=== PATIENT | female | born 1980 | race Caucasian/White ===

== ENCOUNTER 2017-11-07 07:00 | Day surgery (SDC) | payer OTHER ==
[2017-11-02 15:27] VITALS: BMI 65.9
[~2017-11-07 07:00] MED LIST: LACTATED RINGERS 1,000 ML IV SCH; LIDOCAINE 1% 20 ML VIAL (10MG/ML) FOR IV START INTRADERMA PRN
[2017-11-07 07:49] VITALS: TEMP 98.5
[2017-11-07 08:04] LABS: Glucose,Whole Blood 121 mg/dL (75-99)
[2017-11-07] MEDS ORDERED: KETAMINE 10 MG/ML 20 ML VIAL ONE (08:04)
[2017-11-07] MEDS ORDERED: LIDOCAINE 1% INJ 10MG/ML (20 ML MDV) ONE (08:04)
[2017-11-07] MEDS ORDERED: MIDAZOLAM 2 MG/2 ML VIAL ONE (08:04)
[2017-11-07] MEDS ORDERED: ONDANSETRON 4 MG/2 ML VIAL ONE (08:04)
[2017-11-07] MEDS ORDERED: PROPOFOL 10 MG/ML 20 ML VIAL IV ONE (08:04)
--- NOTE | 2017-11-07 08:06 | P.GSHP ---
History of Present Illness H&P Date: 11/07/17 CHIEF COMPLAINT: GERD HISTORY OF PRESENT ILLNESS: The patient is a 36-year-old female who presents reports gastroesophageal reflux disease. Upper endoscopy was offered for further evaluation and management. PAST MEDICAL HISTORY: Please see list. PAST SURGICAL HISTORY: Please see list. MEDICATIONS: Please see list. ALLERGIES: Please see list. SOCIAL HISTORY: No illicit drug use FAMILY HISTORY: No reports of Crohn disease or ulcerative colitis. REVIEW OF ORGAN SYSTEMS: CONSTITUTIONAL: No reports of fevers or chills. GI: Denies any blood in stools or constipation. PHYSICAL EXAM: VITAL SIGNS: Stable GENERAL: Well-developed and pleasant in no acute distress. HEENT: No scleral icterus. Extraocular movements grossly intact. Moist buccal mucosa. NECK: Supple without lymphadenopathy. CHEST: Unlabored respirations. Equal bilateral excursions. CARDIOVASCULAR: Regular rate and rhythm. Distal 2+ pulses. ABDOMEN: Soft, nondistended. MUSCULOSKELETAL: No clubbing, cyanosis, or edema. ASSESSMENT: 1. Gastroesophageal reflux disease PLAN: 1. Recommend proceeding with an upper endoscopy Past Medical History Past Medical History: Asthma, COPD, Diabetes Mellitus, GERD/Reflux, Osteoarthritis (OA), Sleep Apnea/CPAP/BIPAP Additional Past Medical History / Comment(s): HAS NOT RECEIVED C-PAP YET., NEUROPATHY FEET, ANEMIA, LOOSE STOOLS & DIARRHEA., VARICOSE VEIN., PAIN RIGHT ABD. History of Any Multi-Drug Resistant Organisms: MRSA Date of last positivie culture/infection: 2013? MDRO Source:: LEFT AXILL, BUTTOCKS & BACK Past Surgical History: Section, Orthopedic Surgery Additional Past Surgical History / Comment(s): LEFT KNEE RELEASE, D & C, WART REMOVED AXILLA Past Anesthesia/Blood Transfusion Reactions: Previous Problems w/ Anesthesia, Family History of Problems w/ Anesthesia, Motion Sickness, Postoperative Nausea & Vomiting (PONV) Additional Past Anesthesia/Blood Transfusion Reaction / Comment(s): MOTHER HAS PONV Past Psychological History: Anxiety, Depression Smoking Status: Current every day smoker Past Alcohol Use History: None Reported Additional Past Alcohol Use History / Comment(s): SMOKES 4 CIGARETTES /DAY. HX OF 1/2-1 PPD., SMOKING SINCE 23 YEARS OLD Past Drug Use History: None Reported - Past Family History Mother Family Medical History: No Reported History Medications and Allergies Home Medications Medication Instructions Recorded Confirmed Type Albuterol Inhaler [Ventolin Hfa 1 - 2 puff INHALATION RT-Q6H PRN 11/02/17 History Inhaler] Gabapentin [Neurontin] 400 mg PO BID 11/02/17 11/02/17 History Naproxen Sodium [Aleve] 440 mg PO DAILY PRN 11/02/17 11/07/17 History Omeprazole [PriLOSEC] 20 mg PO AC-BRKFST 11/02/17 11/02/17 History Pulmicort/Albuterol Nebulizer 1 dose INHALATION DIRECTED PRN 11/02/17 History buPROPion XL [Wellbutrin Xl] 300 mg PO DAILY 11/02/17 11/02/17 History glipiZIDE [Glucotrol] 1.25 mg PO AC-BRKFST 11/02/17 11/02/17 History Allergies Allergy/AdvReac Type Severity Reaction Status Date / Time erythromycin base Allergy Unknown Nausea & Verified 11/02/17 15:17 Vomiting latex Allergy Unknown Itching Verified 11/02/17 15:17 metformin AdvReac Severe Severe Verified 11/02/17 15:17 Headache adhesive tape AdvReac Unknown Itching Verified 11/02/17 15:17 Surgical - Exam Vital Signs Temp Pulse Resp BP Pulse Ox 98.5 F 87 14 107/73 97 11/07/17 07:48 11/07/17 07:48 11/07/17 07:48 11/07/17 07:48 11/07/17 07:48 Results - Labs Abnormal Lab Results - Last 24 Hours (Table) 11/07/17 Range/Units 08:00 POC Glucose (mg/dL) 121 H (75-99) mg/dL
--- NOTE | 2017-11-07 08:27 | P.PCN ---
Date of Procedure: 11/07/17 Description of Procedure: PREOPERATIVE DIAGNOSIS: Gastroesophageal reflux disease. Morbid obesity. POSTOPERATIVE DIAGNOSIS: Morbid obesity. Gastritis. Gastroesophageal reflux disease. Diaphragmatic hiatal hernia without obstruction. OPERATION: Esophagogastroduodenoscopy with biopsies along antrum. SURGEON: Jessika Gibson MD ANESTHESIA: MAC. INDICATIONS: The patient is a 36-year-old female who presents with a history of reflux disease. Benefits and risks of the procedure were described. Informed consent was obtained. DESCRIPTION: The patient was brought into the endoscopy suite and laid in the left lateral decubitus position. An Olympus gastroscope was passed along the posterior oropharynx down to the distal esophagus where the squamocolumnar junction was encountered at 39 cm from the incisors. The stomach was entered and no bile reflux was found. Additional findings are listed below. Biopsies with cold forceps were obtained of the antrum. The first through third portion of the duodenum was examined and unremarkable. Retroflexion of the scope confirmed Hill grade 3 lower esophageal valve. The squamocolumnar junction demostrated acute LA grade B erosive esophagitis. The stomach was desufflated. The patient tolerated the procedure well. FINDINGS: Squamocolumnar junction 37 cm from the incisors. Diaphragmatic hiatus at 39 cm. Hiatal hernia 2 cm. Hill grade 3 lower esophageal valve. LA grade B erosive esophagitis. No active duodenitis. Chronic gastritis. RECOMMENDATIONS: Further recommendations pending results of pathology report. Upper endoscopy as needed. Plan - Discharge Summary New Discharge Prescriptions: No Action glipiZIDE [Glucotrol] 1.25 mg PO AC-BRKFST buPROPion XL [Wellbutrin Xl] 300 mg PO DAILY Omeprazole [PriLOSEC] 20 mg PO AC-BRKFST Naproxen Sodium [Aleve] 440 mg PO DAILY PRN PRN Reason: Pain Gabapentin [Neurontin] 400 mg PO BID Albuterol Inhaler [Ventolin Hfa Inhaler] 1 - 2 puff INHALATION RT-Q6H PRN PRN Reason: Shortness Of Breath Pulmicort/Albuterol Nebulizer 1 dose INHALATION DIRECTED PRN PRN Reason: Shortness Of Breath Discharge Medication List Albuterol Inhaler [Ventolin Hfa Inhaler] 1 - 2 puff INHALATION RT-Q6H PRN [History] Gabapentin [Neurontin] 400 mg PO BID 11/02/17 [History] Naproxen Sodium [Aleve] 440 mg PO DAILY PRN 11/02/17 [History] Omeprazole [PriLOSEC] 20 mg PO -[facility] 11/02/17 [History] Pulmicort/Albuterol Nebulizer 1 dose INHALATION DIRECTED PRN 11/02/17 [ History] buPROPion XL [Wellbutrin Xl] 300 mg PO DAILY 11/02/17 [History] glipiZIDE [Glucotrol] 1.25 mg PO -[facility] 11/02/17 [History]
[2017-11-07 08:35] VITALS: RESP 16
[2017-11-07] MEDS ORDERED: ONDANSETRON 4 MG/2 ML VIAL IVP ONE (08:42)
[2017-11-07 08:48] VITALS: BP 118/58; PULSE 85
== END 2017-11-07 09:14 | disposition home or self-care (01) ==
LOC: ORWHC2ENDO 07:00
PROVIDERS: ATTEND Surgery Plastic and Reconstructive Surgery
DX: K31.9 Disease of stomach and duodenum, unspecified (principal); K29.70 Gastritis, unspecified, without bleeding; K22.10 Ulcer of esophagus without bleeding; K44.9 Diaphragmatic hernia without obstruction or gangrene; K21.9 Gastro-esophageal reflux disease without esophagitis; E66.01 Morbid (severe) obesity due to excess calories; Z68.44 Body mass index [BMI] 60.0-69.9, adult; E13.42 Other specified diabetes mellitus with diabetic polyneuropathy; Z79.84 Long term (current) use of oral hypoglycemic drugs; M19.90 Unspecified osteoarthritis, unspecified site; G47.30 Sleep apnea, unspecified; J44.9 Chronic obstructive pulmonary disease, unspecified; F41.9 Anxiety disorder, unspecified; F32.9 Major depressive disorder, single episode, unspecified; F17.210 Nicotine dependence, cigarettes, uncomplicated; Z79.899 Other long term (current) drug therapy; Z88.1 Allergy status to other antibiotic agents; Z91.040 Latex allergy status; Z88.8 Allergy status to other drugs, medicaments and biological substances; Z91.09 Other allergy status, other than to drugs and biological substances
CPT/HCPCS: 81025; 88305; 43239; J2250; J2405; J2001; J2704

== ENCOUNTER → 2017-12-22 | Outpatient (CLI) | payer OTHER ==
[2017-12-22 10:06] LABS: HCT 38.3 % (34.0-46.0); MCH 25.2 pg (25.0-35.0); MCHC 31.5 g/dL (31.0-37.0); Platelet Count 388 k/uL (150-450); RBC 4.78 m/uL (3.80-5.40); WBC 11.8 k/uL (3.8-10.6)
== END | disposition home or self-care (01) ==
LOC: LABPAT 09:27
PROVIDERS: ATTEND Anesthesiology
DX: Z01.812 Encounter for preprocedural laboratory examination (principal)
CPT/HCPCS: 36415; 85027; 93005

== ENCOUNTER 2017-12-28 06:50 | Day surgery (SDC) | payer OTHER ==
[2017-12-21 12:54] VITALS: BMI 65.8
--- NOTE | 2017-12-27 17:59 | P.GSHP ---
History of Present Illness H&P Date: 12/28/17 CHIEF COMPLAINT: Cholecystitis HISTORY OF PRESENT ILLNESS: The patient is a 37-year-old female who presents with history of epigastric including right upper quadrant abdominal pain. She underwent diagnostic studies for her gallbladder. Separately her clinical picture was consistent with cholecystitis. Now she presents for surgical intervention. PAST MEDICAL HISTORY: Please see list PAST SURGICAL HISTORY: Please see list MEDICATIONS: Please see list ALLERGIES: Denies. SOCIAL HISTORY: No illicit drug use or recent tobacco use FAMILY HISTORY: Pertinent for gallbladder disease REVIEW OF ORGAN SYSTEMS: CONSTITUTIONAL: No reports of fevers or chills. HEENT: Denies any troubles with the vision or hearing. ENDOCRINE: No reports of hypothyroidism. Has diabetes. RESPIRATORY: No recent pneumonias. CARDIOVASCULAR: Denies chest pain or palpitations GI: No blood in stools or constipation. MUSCULOSKELETAL: Has occasional joint pain including back pain. NEURO: No seizure disorders or headaches. No recent stroke. PSYCH: No depression or suicidal ideation. HEMATOLOGIC: No personal or family history of DVTs or pulmonary emboli. PHYSICAL EXAM: VITAL SIGNS: Afebrile vital signs stable GENERAL: Well-developed pleasant in no acute distress. HEENT: No scleral icterus. Extraocular movements grossly intact. Moist buccal mucosa. NECK: Supple without lymphadenopathy. CHEST: Unlabored respirations. Equal bilateral excursions. CARDIOVASCULAR: Regular rate regular rhythm rhythm. Distal 2+ pulses. ABDOMEN: Soft, nondistended. Tender along the epigastrium and right upper quadrant. MUSCULOSKELETAL: No clubbing, cyanosis, or edema. NEURO: Cranial nerves II to XII within normal limits. No focal or lateralizing signs. PSYCH: Alert and oriented to person, place and time. ASSESSMENT: 1. Epigastric and right upper quadrant abdominal pain 2. Chronic cholecystitis 3. Symptomatic gallstones. PLAN: 1. Will need a robotic cholecystectomy possible open. Benefits and risks were described. 2. Heparin for DVT prophylaxis 5000 units. 3. Antibiotic prophylaxis. Past Medical History Past Medical History: Asthma, COPD, Diabetes Mellitus, GERD/Reflux, Osteoarthritis (OA), Sleep Apnea/CPAP/BIPAP Additional Past Medical History / Comment(s): HAS NOT RECEIVED C-PAP YET., NEUROPATHY FEET, SCOLIOSIS, ANEMIA, LOOSE STOOLS & DIARRHEA., VARICOSE VEIN., PAIN RIGHT ABD., HIATAL HERNIA. History of Any Multi-Drug Resistant Organisms: MRSA Date of last positivie culture/infection: 2013? MDRO Source:: LEFT AXILL, BUTTOCKS & BACK Past Surgical History: Section, Orthopedic Surgery Additional Past Surgical History / Comment(s): LEFT KNEE RELEASE, D & C, WART REMOVED AXILLA, EGD Past Anesthesia/Blood Transfusion Reactions: Previous Problems w/ Anesthesia, Family History of Problems w/ Anesthesia, Motion Sickness, Postoperative Nausea & Vomiting (PONV) Additional Past Anesthesia/Blood Transfusion Reaction / Comment(s): MOTHER HAS PONV Past Psychological History: Anxiety, Depression Smoking Status: Current every day smoker Past Alcohol Use History: None Reported Additional Past Alcohol Use History / Comment(s): SMOKES 4 CIGARETTES /DAY. HX OF 1/2-1 PPD., SMOKING SINCE 23 YEARS OLD Past Drug Use History: None Reported - Past Family History Mother Family Medical History: No Reported History Sister(s) Family Medical History: Deep Vein Thrombosis (DVT) Medications and Allergies Home Medications Medication Instructions Recorded Confirmed Type Albuterol Inhaler [Ventolin Hfa 1 - 2 puff INHALATION RT-Q6H PRN 11/02/17 History Inhaler] Gabapentin [Neurontin] 400 mg PO BID 11/02/17 12/21/17 History Naproxen Sodium [Aleve] 440 mg PO DAILY PRN 11/02/17 12/21/17 History buPROPion XL [Wellbutrin Xl] 300 mg PO DAILY 11/02/17 12/21/17 History glipiZIDE [Glucotrol] 1.25 mg PO AC-BRKFST 11/02/17 12/21/17 History Omeprazole 40 mg PO DAILY #30 capsule.dr 11/07/17 12/21/17 Rx Pulmicort Nebulizer 1 dose INHALATION BID PRN 12/21/17 12/21/17 History Allergies Allergy/AdvReac Type Severity Reaction Status Date / Time erythromycin base Allergy Unknown Nausea & Verified 12/21/17 12:37 Vomiting latex Allergy Unknown Itching Verified 12/21/17 12:37 metformin AdvReac Severe Severe Verified 12/21/17 12:37 Headache adhesive tape AdvReac Unknown Itching Verified 12/21/17 12:37
[~2017-12-28 06:50] MED LIST changes: +ACETAMINOPHEN IV (For NPO) 1,000 MG in EMPTY BAG 1 BAG IVPB ONE; +DEXAMETHASONE SOD PHOSPHATE 10 MG/ML 1 ML VIAL IV ONE; +HEPARIN SODIUM,PORCINE 5,000 UNIT/ML 1 ML VIAL SQ ONE; +HEPARIN SODIUM,PORCINE 5,000 UNIT/ML 1 ML VIAL SQ STA; +INDOCYANINE GREEN 25 MG VIAL IV STA; +MIDAZOLAM 2 MG/2 ML VIAL IV PRN; +ONDANSETRON 4 MG/2 ML VIAL IVP ONE; +SCOPOLAMINE 1.5MG/72HR PATCH TRANSDERM ONE; +ceFAZolin 3 GM in SODIUM CHLORIDE 0.9% 100 ML IVPB ONE
[2017-12-28 08:25] LABS: Glucose,Whole Blood 126 mg/dL (75-99)
[2017-12-28] MEDS ORDERED: LIDOCAINE 1% INJ 10MG/ML (20 ML MDV) ONE (09:19)
[2017-12-28] MEDS ORDERED: ROCURONIUM BROMIDE 10 MG/ML 10 ML VIAL IV ONE ×2 (09:19)
[2017-12-28] MEDS ORDERED: SUCCINYLCHOLINE CHLORIDE 100 MG/5 ML SYR IV ONE (09:19)
[2017-12-28] MEDS ORDERED: INDOCYANINE GREEN 25 MG VIAL IV ONE (09:19)
[2017-12-28] MEDS ORDERED: NEOSTIGMINE 1 MG/ML 10 ML VIAL ONE (09:19)
[2017-12-28] MEDS ORDERED: fentaNYL (PF) 50 MCG/ML 2 ML AMP ONE (09:19)
[2017-12-28] MEDS ORDERED: GLYCOPYRROLATE 0.2 MG/ML 2 ML VIAL ONE (09:19)
[2017-12-28] MEDS ORDERED: PROPOFOL 10 MG/ML 20 ML VIAL IV ONE (09:19)
[2017-12-28] MEDS ORDERED: MIDAZOLAM 2 MG/2 ML VIAL ONE (09:19)
[2017-12-28] MEDS ORDERED: BUPIVACAINE (PF) 0.5% 30 ML VIAL SQ ONE (09:50)
[2017-12-28] MEDS ORDERED: LACTATED RINGERS 1,000 ML IV ONE (10:09)
[2017-12-28] MEDS ORDERED: ONDANSETRON 4 MG/2 ML VIAL IVP ONE (11:15)
[2017-12-28 11:22] VITALS: TEMP 97.5
[2017-12-28] MEDS ORDERED: ALBUTEROL NEBULIZED 2.5 MG/3 ML INHALATION ONE (11:25)
[2017-12-28] MEDS: HYDROmorphone 0.5 MG/0.5 ML SYRINGE IVP PRN ×2 (11:34→11:42)
--- NOTE | 2017-12-28 11:58 | P.OP ---
Date of Procedure: 12/28/17 Description of Procedure: SURGEON: JESSIKA GIBSON MD RIGHT OF WAY CUTTER: PREOPERATIVE DIAGNOSES: 1. Symptomatic gallstones 2. Chronic cholecystitis 3. Morbid obesity due to excess calories, BMI 65.9 4. Diabetes type 2, [id number] 5. Hypertensive heart disease 6. Chronic obstructive pulmonary disease 7. Depression 8. History of tobacco abuse 9. Obstructive sleep apnea POSTOPERATIVE DIAGNOSES: 1. Symptomatic gallstones 2. Chronic cholecystitis 3. Morbid obesity due to excess calories, BMI 65.9 4. Diabetes type 2, [id number] 5. Hypertensive heart disease 6. Chronic obstructive pulmonary disease 7. Depression 8. History of tobacco abuse 9. Obstructive sleep apnea 10. Fatty liver disease with hepatomegaly OPERATION: Robotic-assisted da Igles[place] Xi laparoscopic cholecystectomy, multiport with FIREFLY ESTIMATED BLOOD LOSS: 5 mL. SPECIMENS REMOVED: Gallbladder. COMPLICATIONS: None. OPERATIVE FINDINGS: 1. Chronic cholecystitis INDICATIONS: The patient is a 37-year-old female who presents with cholelcystitis. Surgical intervention with a laparoscopic cholecystectomy was described at length including injury to the biliary tree, bleeding, infection, need for further surgery. Informed consent was obtained. Robotic assisted laparoscopic approach was described. Benefits and risks of the procedure including but not limited to bleeding, infection, injury to the biliary tree was described. Informed consent was obtained. DESCRIPTION OF PROCEDURE: Patient was brought to the operating room, placed in supine position. After general induction, the abdomen had been prepped and draped in standard sterile fashion. The robotic da Iglesia XI system was primed. After a timeout protocol was performed, the patient had been prepped and draped in standard sterile fashion. The patient was injected with indocyanine green. A 5 mm 0 degrees laparoscopic trocar entry was performed along the left upper quadrant. The abdomen insufflated to 15 mmHg pressure which she tolerated well. Diagnostic laparoscopy demonstrated no injury to bowel viscera or mesentery. The liver surface was unremarkable. Next, two 8 mm robotic ports were placed along the right upper abdomen. The camera 8-mm port was maintained along the epigastrium. Another 8 mm port was placed along the left upper abdominal wall after exchanging the 5 mm port. Please note that the ports were placed at least 10 to 15 cm away from the target anatomy of the gallbladder. The robot was docked along the left lateral abdomen. The patient was repositioned in reverse Trendelenburg position. Using a grasper for arm 3, a grasper for arm 4, including hook cautery for arm 1 , the robotic system was docked and primed as described. Instruments were interchanged by the veterinarian assistant including hook cautery, Bovie cautery and clip appliers. I had sat at the console. Adhesions were identified along the infundibulum of the gallbladder and addressed using hook cautery. The gallbladder fundus was retracted over the dome of the liver. Initial attention was brought to the infundibulum which was gently retracted in the inferior lateral approach. Using a grasper, the cystic duct including the cystic artery was carefully skeletonized. FIREFLY was used to identify the cystic artery and cystic structures. Large PLASTIC clips were used throughout the entire case. Using a clip advanced research programs director 2 clips were placed proximally, and 1 clip was placed distally along the cystic duct and then cauterized with the cautery. Again care was taken to avoid any injury to the biliary tree as the common bile duct was clearly visualized during this portion of dissection. Next, the cystic artery was similarly clipped and cauterized. Electro-Bovie cautery was used to remove the gallbladder from the hepatic fossa. Hemostasis was checked and found to be adequate. The robot was undocked. I re-scrubbed into the case. Using a 10 mm Endo Catch bag via the left upper quadrant incision, the specimen was removed from the abdominal cavity. All pneumoperitoneum instruments were evacuated from the abdominal cavity. The incisions were reapproximated using 4-0 Monocryl in an interrupted subcuticular fashion. Fascial defects were less than 8 mm in size. Please note along the trocar sites, local anesthetic was placed as a field block prior to insertion of all instruments. Liquid glue was applied to the skin. At the end of the procedure needle, sponge, and instrument count had been verified correct by the surgical scrub technologist. The patient was transferred to postanesthesia care unit in stable condition. Intraoperative films were shared with the patient's family who were very pleased with the level of care. Console time 38 minutes Plan - Discharge Summary New Discharge Prescriptions: New HYDROcodone/APAP 5-325MG [[place] 5-325] 1 tab PO Q4HR PRN 3 Days #18 tab PRN Reason: Pain Ibuprofen [Motrin] 600 mg PO Q8HR PRN #30 tab PRN Reason: Pain No Action glipiZIDE [Glucotrol] 1.25 mg PO AC-BRKFST buPROPion XL [Wellbutrin Xl] 300 mg PO DAILY Naproxen Sodium [Aleve] 440 mg PO DAILY PRN PRN Reason: Pain Gabapentin [Neurontin] 400 mg PO BID Albuterol Inhaler [Ventolin Hfa Inhaler] 1 - 2 puff INHALATION RT-Q6H PRN PRN Reason: Shortness Of Breath Omeprazole 40 mg PO DAILY #30 capsule. Pulmicort Nebulizer 1 dose INHALATION BID PRN PRN Reason: Shortness Of Breath Discharge Medication List Albuterol Inhaler [Ventolin Hfa Inhaler] 1 - 2 puff INHALATION RT-Q6H PRN [History] Gabapentin [Neurontin] 400 mg PO BID 11/02/17 [History] Naproxen Sodium [Aleve] 440 mg PO DAILY PRN 11/02/17 [History] buPROPion XL [Wellbutrin Xl] 300 mg PO DAILY 11/02/17 [History] glipiZIDE [Glucotrol] 1.25 mg PO AC-BRKFST 11/02/17 [History] Omeprazole 40 mg PO DAILY #30 capsule. 11/07/17 [Rx] Pulmicort Nebulizer 1 dose INHALATION BID PRN 12/21/17 [History] HYDROcodone/APAP 5-325MG [[place] 5-325] 1 tab PO Q4HR PRN 3 Days #18 tab [Rx] Ibuprofen [Motrin] 600 mg PO Q8HR PRN #30 tab 12/28/17 [Rx] Follow up Appointment(s)/Referral(s): Jessika Gibson MD [STAFF PHYSICIAN] - 01/01/18 Patient Instructions/Handouts: Laparoscopic Cholecystectomy (DC) Activity/Diet/Wound Care/Special Instructions: Low-fat diet. No lifting over 4 pounds in 2 weeks. May shower. No bathtub soaks. Discharge Disposition: HOME SELF-CARE
[2017-12-28] MEDS ORDERED: HYDROcodone/APAP 5-325MG 1 EACH TAB PO ONE (12:55)
[2017-12-28 13:05] VITALS: BP 150/71; RESP 18
[2017-12-28 13:38] VITALS: PULSE 89
== END 2017-12-28 14:04 | disposition home or self-care (01) ==
LOC: OR 06:50
PROVIDERS: ATTEND Surgery Plastic and Reconstructive Surgery
DX: E66.01 Morbid (severe) obesity due to excess calories (principal); Z68.44 Body mass index [BMI] 60.0-69.9, adult; E11.40 Type 2 diabetes mellitus with diabetic neuropathy, unspecified; I11.9 Hypertensive heart disease without heart failure; J44.9 Chronic obstructive pulmonary disease, unspecified; F32.9 Major depressive disorder, single episode, unspecified; G47.33 Obstructive sleep apnea (adult) (pediatric); K76.0 Fatty (change of) liver, not elsewhere classified; R16.0 Hepatomegaly, not elsewhere classified; K21.9 Gastro-esophageal reflux disease without esophagitis; M19.90 Unspecified osteoarthritis, unspecified site; M41.9 Scoliosis, unspecified; D64.9 Anemia, unspecified; I83.90 Asymptomatic varicose veins of unspecified lower extremity; F41.9 Anxiety disorder, unspecified; F17.210 Nicotine dependence, cigarettes, uncomplicated; Z99.89 Dependence on other enabling machines and devices; Z79.84 Long term (current) use of oral hypoglycemic drugs; Z79.51 Long term (current) use of inhaled steroids; Z79.899 Other long term (current) drug therapy; Z86.14 Personal history of Methicillin resistant Staphylococcus aureus infection; Z88.1 Allergy status to other antibiotic agents; Z91.040 Latex allergy status; Z88.8 Allergy status to other drugs, medicaments and biological substances; Z91.048 Other nonmedicinal substance allergy status
CPT/HCPCS: 81025; 88304; 47562; J2250; J1644; J1100; J2710; J2405; J2001; J3010; J0131; J0330; J2704; J1170